=== PATIENT | female | born 1960 | race Caucasian/White ===

== ENCOUNTER 2025-06-27 21:28 | Emergency (ER) | payer MEDICARE, SELFPAY ==
[2025-06-27] VITALS (16 sets, daily range): BP systolic 155–206; BP diastolic 79–99; PULSE 113–126; RESP 20–33; TEMP 37.1; O2SAT 86–94
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
--- NOTE | 2025-06-27 21:42 | DI.RAD_ITS ---
Exam(s) XR WRIST LT COMPLETE EXAM: XR WRIST LT COMPLETE CLINICAL HISTORY: deformity. TECHNIQUE: 2D digital imaging was performed of the left wrist. Three images were obtained. PA, oblique and lateral views were obtained. COMPARISON: No exams were available for comparison FINDINGS: BONES: There is an acute fracture of the distal radius involving the metaphysis with extension into the medial aspect of the articular surface. There is very mild impaction of the fracture noted. No bony destructive lesion is seen. JOINTS: The carpal bones are normally aligned. SOFT TISSUE: There is soft tissue swelling around the wrist. IMPRESSION: 1. Mildly impacted acute intra-articular fracture of the distal left radius. 2. The preliminary [facility] report was reviewed. DATA REPOSITORY: RADIATION DOSE DELIVERED:
[2025-06-27] MEDS: fentaNYL 100 MCG/2 ML VIAL 50 MCG IVP (21:47)
[2025-06-27] MEDS: ACETAMINOPHEN 1,000 MG/100 ML BAG 400 MG IVPB (21:48)
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
[2025-06-27 21:59] LABS: BE (Venous) 0 mmol/L (-2-3); HCO3 (Venous) 25 mmol/L (23-28); O2 Sat (Venous) 95 %; TCO2 (Venous) 22 mmol/L (24-29); pCO2 (Venous) 39 mmHg (41-51); pO2 (Venous) 68 mmHg
[2025-06-27 22:01] LABS: Abs Immature Grans 0.32 10^3/uL (0.0-0.06); HCT 38.2 % (36.0-46.0); HGB 12.8 g/dL (11.2-15.7); Immature Grans % 1.4 %; MCH 28.6 pg (27.0-33.0); MCHC 33.5 % (32.0-36.0); MCV 86 fL (80-95); MPV 9.9 fL (8.0-11.0); Platelet Count 404 10^3/uL (130-400); RBC 4.47 10^6/uL (3.93-5.22); RDW 13.5 % (11.7-14.6); RDW-SD 42.6 fL; WBC 22.95 10^3/uL (4.4-10.8)
[2025-06-27 22:17] LABS: INR 1.0 (0.9-1.1); PTT Activated 23.8 sec (20.6-30.2); Prothrombin Time 9.8 sec (9.1-11.1)
[2025-06-27] MEDS: Omnipaque 350 MG/ML 100 ML BTL IJ (22:17)
[2025-06-27] MEDS: Normal Saline - Diluent 50 ML VIAL IJ (22:17)
[2025-06-27 22:18] LABS: Lipase 52 U/L (<53); Magnesium 1.7 mg/dL (1.6-2.6)
[2025-06-27 22:19] LABS: Troponin I 5 ng/L (<35)
[2025-06-27 22:20] LABS: ALT 43 U/L (10-49); AST 55 U/L (<34); Albumin 4.5 g/dL (3.2-5.0); Alkaline Phosphatase 94 U/L (46-116); Anion Gap 9 mmol/L (3-11); BUN 15 mg/dL (9-23); Bilirubin, Total 0.3 mg/dL (0.2-1.2); CO2 24.0 mmol/L (20.0-31.0); Calcium 8.9 mg/dL (8.3-10.6); Chloride 109 mmol/L (98-107); Glucose 132 mg/dL (74-106); Potassium 3.5 mmol/L (3.5-5.1); Sodium 142 mmol/L (136-145); Total Protein 7.1 g/dL (5.7-8.2)
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
[2025-06-27] MEDS: Normal Saline 1,000 ML 1000 ML IV (23:20)
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
[2025-06-27 23:33] LABS: Troponin I 10 ng/L (<35)
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
[2025-06-28] VITALS (21 sets, daily range): BP systolic 169–206; BP diastolic 73–131; PULSE 90–127; RESP 18–39; TEMP 37.2; O2SAT 91–96
[2025-06-28] MEDS: MORPHine 10 MG/ML VIAL 2 MG IVP ×2 (00:21→02:14)
[2025-06-28 02:33] LABS: Glucose Negative (Negative)
[2025-06-28 02:39] LABS: C & S Indicated? No; RBC 0-2 HPF (0-2)
[2025-06-28 02:53] LABS: Cannabinoids THC Negative (Negative)
== END 2025-06-28 02:44 | disposition short-term general hospital (02) ==
PROVIDERS: General Practice; Emergency Provider Student in an Organized Health Care Education/Training Program
DX: S22.42XA Multiple fractures of ribs, left side, initial encounter for closed fracture (principal); S27.322A Contusion of lung, bilateral, initial encounter; S22.22XA Fracture of body of sternum, initial encounter for closed fracture; S62.102A Fracture of unspecified carpal bone, left wrist, initial encounter for closed fracture; V47.6XXA Car passenger injured in collision with fixed or stationary object in traffic accident, initial encounter
CPT/HCPCS: 36415; 74177; 76604; 76705; 76857; 80053; 80307; 82805; 83690; 86850; 86900; 86901; 93005; 96361; 96365; 96375; 96376; 99291; 70450; 71260; 72125; 73110; 73590; 80320; 81003; 81015; 83605; 83735; 83880; 84484; 85025; 85610; 85730; 93010; J0131; J2270; J3010; J3490